=== PATIENT | male | born 1965 | race Caucasian/White ===

== ENCOUNTER → 2018-06-22 12:33 | Outpatient (CLI) | payer OTHER | END | disposition home or self-care (01) | LOC: D.CT 12:33 | DX: I73.9 Peripheral vascular disease, unspecified (principal) ==

== ENCOUNTER → 2018-07-01 10:51 | Outpatient (CLI) | payer OTHER | END | disposition home or self-care (01) | LOC: D.CT 06-29 13:30 | DX: R91.8 Other nonspecific abnormal finding of lung field (principal) ==